=== PATIENT | female | born 2000 | race Caucasian/White ===

== ENCOUNTER 2018-09-20 08:37 | Day surgery (SDC) | payer OTHER ==
[~2018-09-20] VITALS: Ht 157.5 cm; Wt 64.9 kg
[~2018-09-20 08:37] MED LIST: ORTHO TRI CYCLEN
[2018-09-20 09:05] LABS: HEMATOCRIT 39.2 % (36.0-48.0); HEMOGLOBIN 13.1 g/dL (12-16); MCH 29.8 pg (26.0-34.0); MCHC 33.4 g/dL (31.0-37.0); MCV 89.1 fL (80.0-100.0); RBC 4.4 10x6/uL (4.00-5.40); RDW 12.3 % (11.5-14.5); WBC 5.7 10x3/uL (4.8-10.8)
[2018-09-20 09:20] VITALS: BP 124/74; Ht 157.5 cm; Wt 64.9 kg
[2018-09-20 10:04] LABS: HCG URINE NEGATIVE (NEGATIVE)
--- NOTE | 2018-09-20 12:54 | OP ---
PATIENT NAME: JOANNE SHEA MEDICAL RECORD: [id number] :98 LOCATION:D.OPS ADMISSION DATE: SURGEON: VIMAL GIBSON MD DATE OF OPERATION: 09/20/2018 SURGEON: Vimal Gibson MD ANESTHESIA: TIVA by Frankie Minor CRNA PROCEDURES: Cystoscopy, bladder hydrodistention, and intravesical Rimso installation. DIAGNOSIS: Interstitial cystitis. FINDINGS: Single ureteral orifices bilaterally. No bladder tumors. Diffuse bladder inflammation seen. ESTIMATED BLOOD LOSS: Minimal. 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 She has a long history of UTI-type symptoms as well as bladder pain and urinary frequency and urgency as well as dysuria. She comes today for cystoscopy and if we see bladder inflammation, she will have hydrodistention done and intravesical Rimso instillation. She is not allergic to any medications. She was given [employer] telephone technician to the OR. DESCRIPTION OF PROCEDURE: The patient was given IV sedation. She was placed in the dorsal lithotomy position. We used a 21-[place] [employer] cystoscope with 30-degree lens for visualization. She had diffuse bladder inflammation seen. I then filled her bladder with 500 mL of saline and left it distended for about a minute. The bladder was then emptied through the cystoscope sheath. She already had a lot of pain from this as she was reacting by bucking quite strongly on the table. A 16[employer] [employer] red rubber Torres catheter was then inserted into the bladder. Through the catheter, 50 mL of Rimso solution was instilled into the bladder. We then removed the catheter, leaving the solution in the bladder. She will hold the solution in for 15 minutes and then void it out. I will see her in followup in 2 weeks' time. TRANSINT:[id number] Voice Confirmation ID: [id number] DOCUMENT ID: [id number] VIMAL GIBSON MD at 1254 CC: [id number] DICTATION DATE: 09/20/18 1239 [employer] SALES REPRESENTATIVE: 09/20/18 1251 [facility] [address] [place] [address]
== END 2018-09-20 14:45 | disposition home or self-care (01) ==
LOC: D.OPS 08:37 → D.PAN 14:45 → D.OPS 17:15
PROVIDERS: Anesthesiology; ATTEND Urology
DX: N30.10 Interstitial cystitis (chronic) without hematuria (principal); R35.0 Frequency of micturition; R39.15 Urgency of urination; Z01.812 Encounter for preprocedural laboratory examination

== ENCOUNTER → 2018-11-15 15:41 | Outpatient (CLI) | payer OTHER | END | disposition home or self-care (01) | LOC: D.LABREF 15:41 | DX: R31.9 Hematuria, unspecified (principal); D72.829 Elevated white blood cell count, unspecified ==